=== PATIENT | female | born 1935 | race Caucasian/White ===

== ENCOUNTER 2022-01-25 17:06 | Inpatient (IN) | payer OTHER, MEDICAID ==
[~2022-01-25] VITALS: Ht 152.4 cm; Wt 81.6 kg
[2022-01-25 17:11] VITALS: BP_SYST 163
--- NOTE | 2022-01-25 17:11 | NUR ---
Placed in room 2 . Placed on telemetry monitor, blood pressure machine and pulse oximeter. To gown for exam. Side rails up.
--- NOTE | 2022-01-25 17:15 | NUR ---
PT BIBA FROM HOME AFTER MECHANICAL TRIP AND FALL IN BATHROOM HITTING BACK OF HEAD. HEMATOMA TO LEFT PARIETAL WITH ABRASION, -KO AOX3, VSS
[2022-01-25] MEDS ORDERED: HYDROcodone/ACETAMIN 7.5-325 MG TAB PO ONE (17:30)
--- NOTE | 2022-01-25 17:38 | NUR ---
Patient transported to radiology via GURNEY, accompanied by STAFF.
--- NOTE | 2022-01-25 18:00 | NUR ---
LAB AT THE BEDSIDE FOR BLOOD DRAW
[2022-01-25 18:12] LABS: BASOPHILS % (AUTO) 0.5 % (0.0-2.0); EOSINOPHILS % (AUTO) 1.1 % (0.0-4.0); HEMATOCRIT 33.7 % (36-48); HEMOGLOBIN 11.7 g/dL (12.0-16.0); LYMPHOCYTES # (AUTO) 1.1 K/uL (1.0-5.5); LYMPHOCYTES % (AUTO) 23.8 % (20.5-51.5); MEAN CORPUSCULAR HEMOGLOBIN 30 pg (27-31); MEAN CORPUSCULAR HGB CONC 35 % (32-36); MEAN CORPUSCULAR VOLUME 88 fL (79.0-98.0); MONOCYTES # (AUTO) 0.3 K/uL (0.0-1.0); MONOCYTES % (AUTO) 7.8 % (1.7-9.3); NEUTROPHILS % (AUTO) 66.8 % (40.0-70.0); PLATELET COUNT (AUTO) 272 K/uL (130-430); RED BLOOD CELL COUNT(AUTO) 3.85 MIL/uL (4.2-6.2); RED CELL DISTRIBUTION WIDTH 13.9 % (9.0-15.0); WHITE BLOOD COUNT (AUTO) 4.4 K/uL (4.8-10.8)
[2022-01-25 18:26] LABS: ANION GAP 4 (5-15); CALCIUM 8.3 mg/dL (8.4-11.0); CHLORIDE 92 mmol/L (98-107); CREATININE 0.81 mg/dL (0.55-1.30); GLUCOSE 97 mg/dL (70-99); POTASSIUM 4.8 mmol/L (3.5-5.1); SODIUM SERUM 124 mmol/L (136-145); UREA NITROGEN, BLOOD 10 mg/dL (8-21)
--- NOTE | 2022-01-25 18:31 | NUR ---
PT HAS SUPERFICIAL CONTUSION TO BACK OF HEAD WITH SMALL LAC, BLEEDING CONTROLLED. MD AT BEDSIDE
[2022-01-25] MEDS ORDERED: BACITRACIN 1 GM OINT TP ONE ×2 (18:35→18:45)
[2022-01-25 18:39] LABS: ALANINE AMINOTRANSFERASE 23 U/L (12-78); ALBUMIN 3.7 g/dL (3.4-4.8); ASPARTATE AMINOTRANSFERASE 24 U/L (10-37); TOTAL BILIRUBIN 0.5 mg/dL (0.0-1.0)
[2022-01-25] MEDS ORDERED: DIPH-TET-PERTUS Vaccine 0.5 ML VIAL (ADACEL) I.M. ONE (18:45)
[2022-01-25] MEDS ORDERED: NACL 0.9% 1,000 ML IV ONE (19:00)
--- NOTE | 2022-01-25 19:20 | NUR ---
REPORT GIVEN TO FANTASMA HOWARD FOR CONTINUING CARE
--- NOTE | 2022-01-25 19:45 | NUR ---
COVID swab perfrmed at 19:38 and sent to lab at 19:40.
--- NOTE | 2022-01-25 19:49 | NUR ---
received the report from the morning nurse Charles. Pt is alert and oriented, no confusion noted. family at bed side. VVS
[2022-01-25] MEDS ORDERED: ACETAMINOPHEN 325 MG TABLET PO PRN (21:00)
[2022-01-25] MEDS ORDERED: ONDANSETRON HCL 4 MG/2 ML VIAL IVP PRN (21:00)
--- NOTE | 2022-01-25 21:17 | NUR ---
Admit bed requested Patient will be admitted to care of . Admitted to MED SURG unit. Diagnosis HYPONATREMIA AND HEMATOMA Inpatient (Yes or No) YES Orientation concerns or request close to nursing station (Yes or No) YES Covid Status NEGATIVE From Home (Yes or if No enter name of facility) YES
[2022-01-25 23:27] VITALS: BP_SYST 122
[2022-01-25 23:41] VITALS: BP_SYST 122
[2022-01-26 01:32] VITALS: BP_SYST 126
--- NOTE | 2022-01-26 05:55 | NUR ---
CONSULTATION PAGED/CALLED Reason for Consultation: HEMATOMA Person Who was Notified: LANDY Consulting Physician: ISABELA Design Engineering Manager Specialty: Ordering Physician: Beth ESCAMILLA
[2022-01-26] MEDS ORDERED: ONDANSETRON HCL 4 MG/2 ML VIAL IVP PRN (06:45)
[2022-01-26] MEDS ORDERED: LORazepam 2 MG/ML VIAL IVP PRN (06:45)
[2022-01-26] MEDS ORDERED: ACETAMINOPHEN 325 MG TABLET PO PRN (06:45)
[2022-01-26 07:16] LABS: ANION GAP 5 (5-15); CHLORIDE 97 mmol/L (98-107); CREATININE 0.75 mg/dL (0.55-1.30); GLUCOSE 79 mg/dL (70-99); PHOSPHORUS 3.8 mg/dL (2.7-4.5); POTASSIUM 4.2 mmol/L (3.5-5.1); SODIUM SERUM 129 mmol/L (136-145); UREA NITROGEN, BLOOD 9 mg/dL (8-21)
[2022-01-26 07:44] LABS: BASOPHILS % (AUTO) 0.7 % (0.0-2.0); EOSINOPHILS # (AUTO) 0.1 K/uL (0.0-0.4); EOSINOPHILS % (AUTO) 2.8 % (0.0-4.0); HEMATOCRIT 32.7 % (36-48); LYMPHOCYTES # (AUTO) 1.1 K/uL (1.0-5.5); LYMPHOCYTES % (AUTO) 28.4 % (20.5-51.5); MEAN CORPUSCULAR HEMOGLOBIN 30 pg (27-31); MEAN CORPUSCULAR HGB CONC 34 % (32-36); MEAN CORPUSCULAR VOLUME 89 fL (79.0-98.0); MONOCYTES # (AUTO) 0.4 K/uL (0.0-1.0); MONOCYTES % (AUTO) 9.5 % (1.7-9.3); NEUTROPHILS # (AUTO) 2.2 K/uL (1.8-7.7); NEUTROPHILS % (AUTO) 58.6 % (40.0-70.0); PLATELET COUNT (AUTO) 263 K/uL (130-430); RED BLOOD CELL COUNT(AUTO) 3.68 MIL/uL (4.2-6.2); WHITE BLOOD COUNT (AUTO) 3.8 K/uL (4.8-10.8)
[2022-01-26 08:00] VITALS: BP_SYST 101
[2022-01-26] MEDS: NACL 0.9% 1,000 ML IV SCH ×3 (08:54→20:58)
[2022-01-26] MEDS ORDERED: DULO60CA42 PO (10:05)
[2022-01-26] MEDS ORDERED: ASPI-859 PO (10:05)
[2022-01-26] MEDS ORDERED: LIP20 PO (10:05)
[2022-01-26] MEDS ORDERED: MELO15TA13 PO (10:05)
[2022-01-26] MEDS ORDERED: ALEN10TA25 PO (10:05)
[2022-01-26] MEDS ORDERED: IRBE75TA29 PO (10:05)
[2022-01-26] MEDS ORDERED: OMEP20CA15 PO (10:05)
[2022-01-26] MEDS ORDERED: MECL-225 PO (10:05)
[2022-01-26 12:12] VITALS: BP_SYST 134
[2022-01-26 16:55] VITALS: BP_SYST 123
[2022-01-26 20:00] VITALS: BP_SYST 94
[2022-01-26] MEDS: LOSARTAN POTASSIUM 25 MG TABLET PO SCH (20:56)
[2022-01-26] MEDS ORDERED: ATORVASTATIN 10 MG TABLET PO SCH (21:00)
[2022-01-27 00:25] VITALS: BP_SYST 134
--- NOTE | 2022-01-27 04:00 | NUR ---
NO CHANGES NOTED FROM PREVIOUS ASSESSMENT, WILL CONTINUE TO MONITOR. Addendum: 01/27/22 at 0810 by Marika Catalan it systems manager 0000 NO CHANGES NOTED FROM PREVIOUS ASSESSMENT, WILL CONTINUE TO MONITOR.
--- NOTE | 2022-01-27 04:00 | NUR ---
PT RESTING COMFORTABLY IN BED, NO S/S OF DISTRESS OR DISCOMFORT NOTED, REPOSITIONED SELF PER COMFORT, WILL CONTINUE TO MONITOR.
[2022-01-27 06:54] LABS: BASOPHILS % (AUTO) 0.6 % (0.0-2.0); EOSINOPHILS # (AUTO) 0.2 K/uL (0.0-0.4); EOSINOPHILS % (AUTO) 4.2 % (0.0-4.0); HEMATOCRIT 31.8 % (36-48); HEMOGLOBIN 10.8 g/dL (12.0-16.0); LYMPHOCYTES # (AUTO) 1.3 K/uL (1.0-5.5); LYMPHOCYTES % (AUTO) 34.3 % (20.5-51.5); MEAN CORPUSCULAR HEMOGLOBIN 30 pg (27-31); MEAN CORPUSCULAR HGB CONC 34 % (32-36); MEAN CORPUSCULAR VOLUME 90 fL (79.0-98.0); MONOCYTES # (AUTO) 0.4 K/uL (0.0-1.0); MONOCYTES % (AUTO) 11.6 % (1.7-9.3); NEUTROPHILS # (AUTO) 1.8 K/uL (1.8-7.7); NEUTROPHILS % (AUTO) 49.3 % (40.0-70.0); PLATELET COUNT (AUTO) 246 K/uL (130-430); RED BLOOD CELL COUNT(AUTO) 3.55 MIL/uL (4.2-6.2); RED CELL DISTRIBUTION WIDTH 14.1 % (9.0-15.0); WHITE BLOOD COUNT (AUTO) 3.6 K/uL (4.8-10.8)
[2022-01-27 07:11] LABS: ALANINE AMINOTRANSFERASE 16 U/L (12-78); ALBUMIN 2.9 g/dL (3.4-4.8); ANION GAP 4 (5-15); ASPARTATE AMINOTRANSFERASE 20 U/L (10-37); CALCIUM 7.6 mg/dL (8.4-11.0); CHLORIDE 101 mmol/L (98-107); CREATININE 0.69 mg/dL (0.55-1.30); GLUCOSE 94 mg/dL (70-99); PHOSPHORUS 4.1 mg/dL (2.7-4.5); POTASSIUM 4.1 mmol/L (3.5-5.1); SODIUM SERUM 130 mmol/L (136-145); TOTAL BILIRUBIN 0.3 mg/dL (0.0-1.0); UREA NITROGEN, BLOOD 10 mg/dL (8-21)
--- NOTE | 2022-01-27 07:59 | NUR ---
REPORT GIVEN TO FANTASMA QUEVEDO FOR CONTINUITY OF CARE ALL QUESTIONS WERE ANSWERED AND RN VERBALIZED UNDERSTANDING.
--- NOTE | 2022-01-27 08:00 | NUR ---
NOTES PATIENT AAOX 4. [place]. HAS HEARING AID ON THE BEDSIDE. IV ACCESS ON THE RT FOREARM #22 WITH NS AT 100CC/HR INFUSING ON WELL. VITALS SIGNS STABLE. AFEBRILE. BED LOW POSITION, ALARMED AND LOCKED. WILL CONTINUE
[2022-01-27 08:30] VITALS: BP_SYST 140
[2022-01-27] MEDS: LOSARTAN POTASSIUM 25 MG TABLET PO SCH (08:50)
[2022-01-27] MEDS: NACL 0.9% 1,000 ML IV SCH (08:52)
--- NOTE | 2022-01-27 08:52 | NUR ---
DUE MEDS GIVEN. MADE COMFORTABLE.
[2022-01-27] MEDS ORDERED: DULoxetine HCL 30 MG CAPSULE.DR (CYMBALTA) PO SCH (09:00)
[2022-01-27] MEDS ORDERED: PANTOPRAZOLE SODIUM 40 MG TAB PO SCH (09:00)
--- NOTE | 2022-01-27 12:30 | NUR ---
SEEN BY DR PRADHAN. NO ORDERS MADE.
[2022-01-27 12:55] VITALS: BP_SYST 138
--- NOTE | 2022-01-27 14:00 | NUR ---
RESTING WATCHING TV. NO PAIN NOR DISTRESS NOTED.
--- NOTE | 2022-01-27 15:00 | NUR ---
Wound Evaluation: Late note for 01/27/2022 at 1500 secondary to patient care. Wound Consult ordered for Low Braulio Score. Patient evaluated for a low Braulio score, now a 19. Patient was awake, alert, oriented and received in a [place]ajas Bed with an At mos-Air 9000 mattress. Patient is able to turn in bed independently. Skin assessment: 1. Right Lateral Parietal Scalp: Hematoma from fall at home, present on admission. Site has 100% black scab with 2 sutures. No odor, no drainage. Dry, stable. Recommend: Cover site with Telfa pad, then secure with hair net. Perform site care daily. Recommend encourage patient to reposition every 2 hours in bed with pillow support. Elevate, off-load and float bilateral heels with pillows. Offload pressure areas with pillows for pressure re-distribution. Perform skin care and monitor skin integrity Q shift. Use moisture barrier cream on moisture susceptible areas QID and PRN for soiling.
[2022-01-27 15:20] VITALS: BP_SYST 138
--- NOTE | 2022-01-27 15:50 | NUR ---
PATIENT LEFT VIA WHEELCHAIR ACCOMPANIED BY JOANNE PENDLETON AND DAUGHTER STACY. LEFT IN STABLE CONDITION.
--- NOTE | 2022-01-27 15:50 | NUR ---
REFUSED TO LET SAE RN TO DO THE CLEANING AND DRESSING OF SUTURES X 2 ON TOP OF THE HEAD PART. DAUGHTER AND PATIENT REFUSED. HAIRNET GIVEN, TELFA X 3 AND GUAZE 4X4 GIVEN WITH PLASTIC BAG. DISCHARGE SUMMARY SIGNED BY THE DAUGHTER. INSTRUCTIONS GIVEN REGARDING THE FOLLOW UP WITH PCP IN ONE WEEK. AND TO CONTINUE PREVIOUS MEDICATIONS ORDERED. RADHA REMOVED SDCH ID BAND AND IV ACCESS. VERBALIZED UNDERSTANDING ON THE DISCHARGE INSTRUCTIONS.
== END 2022-01-27 12:50 | disposition home or self-care (01) | DRG 605 ==
LOC: SED 17:06 → SMU 19:21 → STU 22:35 → SMU 22:45 → STU 01-26 11:05
PROVIDERS: ADMIT Internal Medicine Hospice and Palliative Medicine; ATTEND Internal Medicine Hospice and Palliative Medicine
DX: S00.03XA Contusion of scalp, initial encounter (principal); E87.1 Hypo-osmolality and hyponatremia; W18.39XA Other fall on same level, initial encounter; I10 Essential (primary) hypertension; M19.90 Unspecified osteoarthritis, unspecified site; Z20.822 Contact with and (suspected) exposure to COVID-19; Z85.3 Personal history of malignant neoplasm of breast; Z88.6 Allergy status to analgesic agent; Z79.899 Other long term (current) drug therapy; Y93.89 Activity, other specified; Y92.89 Other specified places as the place of occurrence of the external cause; Y99.8 Other external cause status
CPT/HCPCS: 36415; 70450-TC; 72125-TC; 76376; 80048; 80053; 83605; 83735; 84100; 84443; 85025; 90715; 93306; 97116-GP; 97530-GP; 99285; G0378